=== PATIENT | female | born 1990 | race Caucasian/White ===

== ENCOUNTER 2022-02-11 13:29 | Emergency (ER) | payer OTHER ==
[2022-02-11 13:54] LABS: BASOPHIL 0.9 % (0-2); EOSINOPHIL 0.5 % (0-5); HCT 48.8 % (37.0-47.0); HGB 15.8 g/dl (12.5-16.0); MCH 29.6 pg (25.0-31.0); MCHC 32.4 g/dL (32.0-36.0); MCV 91.4 fL (78.0-100.0); MONOCYTE 7.3 % (0-12); MPV 9.3 fL (6.0-9.5); NEUTROPHIL 68.1 % (41-80); NRBC 0; PLT 458 K/uL (150-400); RBC 5.34 M/uL (4.20-5.40); WBC 9.3 K/uL (4.0-10.5)
[2022-02-11 14:10] LABS: BUN/CREAT RATIO (CALC) 15.4 RATIO; CREATININE 1.23 mg/dL (0.51-0.95); POTASSIUM 3.7 mmol/L (3.5-5.1)
== END 2022-02-11 15:56 | disposition home or self-care (01) ==
LOC: FER 13:29
PROVIDERS: Nurse Practitioner Family
DX: T67.5XXA Heat exhaustion, unspecified, initial encounter (principal); I10 Essential (primary) hypertension; Z28.310 Unvaccinated for COVID-19; X30.XXXA Exposure to excessive natural heat, initial encounter
CPT/HCPCS: 36415; 80048; 85025; J2405; J7030